=== PATIENT | male | born 1975 | race African-American/Black ===

== ENCOUNTER 2016-05-30 11:34 | Emergency (ER) | payer OTHER ==
--- NOTE | ~2016-05-30 | CR63 ---
[facility] A Service of [facility] & [facility] RADIOLOGY TEXT RESULTS PATIENT: REJI HORN LOCATION: [facility] : 79 UNIT #: [id number] AGE: [address]: SADA MALAVE SEX: M ORDER DR: [id number] [facility] [address] [place], [place] [address] [id number] E MR#: [id number] Acc #: [id number] NAME: REJI HORN. : 1975 SEX: M STUDY DATE/TIME: 05/30/2016 11:04 UNIT: [facility] ROOM: STUDY DESCRIPTION: CR Chest 2 View Attending Physician: Sada Malave Aprn Ordering Physician: Ed Doc Ramsey Broussard Primary Care Physician: No Primary Care Physician MEDICAL IMAGING REPORT This report is preliminary unless electronic signature is present EXAM Chest x-ray 2 views HISTORY Cough, congestion, chest pain, short of air. Symptoms for a week. COMMENTS 2 views of the chest reviewed. There is a previous from 12/29/2015. There is infiltrate in the right middle lobe new from prior most concerning for pneumonia. It is patchy. There is mild prominence of interstitial markings otherwise and thickening of the central peribronchovascular soft tissues more apparent to the right. Heart size normal. No congestive failure. No pleural effusion. No pneumothorax. Mild elevation of the right hemidiaphragm is not changed. IMPRESSION 1. Patchy right middle lobe infiltrate new from prior most concerning for pneumonia. Followup to complete resolution is recommended to exclude postobstructive process. 2. There is again deviation of the trachea to the right side probably due to a thyroid lesion. This is best pursued with a followup non emergent thyroid ultrasound. I would recommend that this be performed in this relatively young male patient if not previously performed elsewhere. Dictated by... Alejandra Gonzalez M.D. THIS IS AN ELECTRONICALLY VERIFIED REPORT Alejandra Gonzalez M.D. at 05/31/2016 6:19 AM HARRIS/donna TD: 05/31/2016 00:06 [facility]. [facility] A Service of [facility] & [facility] RADIOLOGY TEXT RESULTS PATIENT: REJI HORN LOCATION: [facility] : 79 UNIT #: [id number] AGE: [address]: SADA MALAVE SEX: M ORDER DR: KATIE #: [id number] MEDICAL IMAGING REPORT COPY
[~2016-05-30 11:34] MED LIST: ALBUTEROL17 GM; COMBIVENT INH14.7 GM; MUCINEX DM1 TAB.SR .; PREDNISONE PO; PREDNISONE10 MG/DOSE PO; ZITHROMAX PO
== END 2016-05-30 12:59 | disposition home or self-care (01) ==
LOC: CFTX 11:34
DX: J18.9 Pneumonia, unspecified organism (principal); E07.89 Other specified disorders of thyroid; J45.909 Unspecified asthma, uncomplicated
CPT/HCPCS: 71020; 94640; 99283

== ENCOUNTER 2016-06-10 08:06 | Emergency (ER) | payer OTHER ==
--- NOTE | ~2016-06-10 | CR63 ---
[facility] A Service of [facility] & [facility] RADIOLOGY TEXT RESULTS PATIENT: REJI HORN LOCATION: [facility] : 79 UNIT #: [id number] AGE: [address]: Nadia Villalpando SEX: M ORDER DR: [id number] [facility] [address] [place], [place] [address] [id number] E MR#: [id number] Acc #: [id number] NAME: REJI HORN : 1975 SEX: M STUDY DATE/TIME: 06/10/2016 8:53 UNIT: [facility] ROOM: STUDY DESCRIPTION: CR Chest 2 View Attending Physician: Nadia Villalpando Pa-C Ordering Physician: Nadia Villalpando Pa-C Primary Care Physician: No Primary Care Physician MEDICAL IMAGING REPORT This report is preliminary unless electronic signature is present EXAM Chest 06/10/2016 at 0853 hours HISTORY 40-year-old male short of air, cough, and congestion. History of pneumonia. Patient is a smoker. COMPARISON 05/30/2016. FINDINGS PA and lateral chest views show normal stable heart size. Aorta appears normal. Hilar structures are preserved. Very mild [id number] tracheal deviation is again noted. Lungs are clear with no infiltrates at this time. There are no effusions. IMPRESSION Negative chest. No acute chest finding at this time. Dictated by... Ramy Montoya M.D. THIS IS AN ELECTRONICALLY VERIFIED REPORT Ramy Montoya M.D. at 06/10/2016 2:12 PM ZOYA/joe TD: 06/10/2016 14:01 JOB #: [id number] MEDICAL IMAGING REPORT COPY
== END 2016-06-10 09:35 | disposition home or self-care (01) ==
LOC: CED 08:06
DX: J45.901 Unspecified asthma with (acute) exacerbation (principal); Z87.891 Personal history of nicotine dependence
CPT/HCPCS: 71020; 94640; 99284